=== PATIENT | male | born 1975 | race Caucasian/White ===

== ENCOUNTER 2019-02-10 16:46 | Emergency (ER) | payer BC ==
[2019-02-10] MEDS: DIPHTH/TET/ACEL PERTUSS (ADULT) 0.5 ML VIAL IM* (17:42)
[2019-02-10] MEDS: CIPROFLOXACIN 500 MG TAB PO (17:42)
== END 2019-02-10 18:06 | disposition home or self-care (01) ==
LOC: FTE 16:46
DX: S91.331A Puncture wound without foreign body, right foot, initial encounter (principal); W45.0XXA Nail entering through skin, initial encounter; Y92.9 Unspecified place or not applicable; Z23 Encounter for immunization
CPT/HCPCS: 90471; 90715; 99283-25